=== PATIENT | male | born 1995 | race African-American/Black ===

== ENCOUNTER 2025-06-19 20:41 | Emergency (ER) | payer OTHER ==
[~2025-06-19] VITALS: Ht 180.3 cm; Wt 110.0 kg
[2025-06-19 20:43] VITALS: O2SAT 99
[2025-06-19 22:45] VITALS: BP 140/73; PULSE 85; RESP 17; TEMP 36.9; O2SAT 97
== END 2025-06-19 22:50 | disposition home or self-care (01) ==
LOC: ER 20:41
DX: S62.338A Displaced fracture of neck of other metacarpal bone, initial encounter for closed fracture (principal); F31.9 Bipolar disorder, unspecified; F20.9 Schizophrenia, unspecified; E11.9 Type 2 diabetes mellitus without complications; X58.XXXA Exposure to other specified factors, initial encounter; Y93.89 Activity, other specified; Y92.89 Other specified places as the place of occurrence of the external cause; Y99.8 Other external cause status
CPT/HCPCS: 29125; 73130; 73610; 99284